=== PATIENT | male | born 1940 | race Two or more races ===

== ENCOUNTER 2019-01-13 17:33 | Inpatient (IN) | payer OTHER ==
[~2019-01-13] VITALS: Ht 177.8 cm; Wt 91.1 kg
[2019-01-14] MEDS ORDERED: KETOROLAC TROMETH 30 MG/ML 1ML VIAL IV ONE (01:30)
[2019-01-14 02:24] LABS: Basophils # (auto) 0 uL; Basophils % (auto) 0.3 % (0.0-2.0); Eosinophils # (auto) 0 uL; Eosinophils % (auto) 0.1 % (0.0-7.0); Hemoglobin 12.3 g/dL (13.5-17.5); Lymphocytes # (auto) 1.2 uL; Lymphocytes % (auto) 9.7 % (10.0-50.0); Mean Corpuscular Hemoglobin 30.3 pg (28.0-32.0); Mean Corpuscular Hgb Conc. 34.1 g/dL (32.0-36.0); Monocytes # (auto) 1.3 uL; Monocytes % (auto) 10.3 % (0.0-12.0); Neutrophils % (auto) 79.6 % (37.0-80.0); Platelet Count (auto) 165 10^3/uL (140-450); Red Blood Cells 4.05 10^6/uL (4.5-5.90); White Blood Cell 12.5 10^3/uL (4.4-10.8)
[2019-01-14 02:37] LABS: INR 1.11 (0.9-1.15)
[2019-01-14 03:05] LABS: Albumin 3.2 g/dL (3.4-5.0); Anion Gap 9 (5-15); Blood Urea Nitrogen 17 mg/dL (7-18); Calcium 8.1 mg/dL (8.5-10.1); Carbon Dioxide 24 mmol/L (21-32); Chloride 107 mmol/L (98-107); Glucose 120 mg/dL (74-106); Potassium 3.7 mmol/L (3.5-5.1); Sodium 140 mmol/L (136-145)
[2019-01-14 03:08] LABS: GFR African American 113 mL/min; GFR Non-African American 93 mL/min
[2019-01-14 03:13] LABS: Alanine Aminotransferase 21 U/L (16-61); Alkaline Phosphatase 76 U/L (45-117); Aspartate Aminotransferase 37 U/L (15-37); Bilirubin, Total 0.9 mg/dL (0.2-1.0); Total Protein 6.8 g/dL (6.4-8.2)
[2019-01-14 03:40] LABS: BUN/Creatinine Ratio 1.2
[2019-01-14] MEDS ORDERED: HYDROcodone-ACET 5/325MG TAB PO PRN (05:45)
[2019-01-14] MEDS ORDERED: LORazepam 0.5 MG TAB PO PRN (05:45)
[2019-01-14] MEDS ORDERED: DOCUSATE SOD 100 MG CAP PO PRN (05:45)
[2019-01-14] MEDS ORDERED: ACETAMINOPHEN 325 MG TAB PO PRN (05:45)
[2019-01-14] MEDS ORDERED: ONDANSETRON HCL 4 MG/2 ML VIAL IV PRN (05:45)
[2019-01-14 07:17] LABS: Basophils # (auto) 0 uL; Basophils % (auto) 0.3 % (0.0-2.0); Eosinophils # (auto) 0 uL; Eosinophils % (auto) 0.4 % (0.0-7.0); Hematocrit 34.7 % (41.0-53.0); Hemoglobin 11.8 g/dL (13.5-17.5); Lymphocytes # (auto) 1.6 uL; Lymphocytes % (auto) 17.7 % (10.0-50.0); Mean Corpuscular Hemoglobin 30.4 pg (28.0-32.0); Mean Corpuscular Volume 89.4 fL (80.0-100.0); Monocytes # (auto) 1.3 uL; Monocytes % (auto) 14.1 % (0.0-12.0); Neutrophils # (auto) 6.1 uL; Neutrophils % (auto) 67.5 % (37.0-80.0); Platelet Count (auto) 146 10^3/uL (140-450); Red Blood Cells 3.89 10^6/uL (4.5-5.90); Red Cell Distribution Width 14.2 % (11.8-14.3)
[2019-01-14] MEDS: D5W/SOD CHL 0.45% 1,000 ML IV SCH (07:17)
[2019-01-14 07:39] LABS: BUN/Creatinine Ratio 21.5; Calcium 8.1 mg/dL (8.5-10.1); Potassium 3.6 mmol/L (3.5-5.1)
--- NOTE | 2019-01-14 08:56 | NUR ---
MS admit from ER BARBY HAGER admitted to tele/MS. Patient oriented to Carlotta Copeland, primary RN, unit, room, bed, and unit policies regarding patient care and visiting hours. Safety precautions in place, bed set to lowest position/locked, bedside rails up x2, call light with in reach, bed alarm on. Will continue to monitor Q1hr and PRN.
[2019-01-14 09:00] VITALS: BP 145/69
[2019-01-14 13:00] VITALS: BP 150/78
[2019-01-14 17:36] VITALS: BP 138/72
[2019-01-14 19:21] LABS: Urine Bacteria NONE SEEN /hpf (None Seen); Urine Blood TRACE /uL (Negative); Urine Specific Gravity 1.023 (1.001-1.035); Urine WBC 88 /hpf (0 - 3)
--- NOTE | 2019-01-14 21:45 | NUR ---
Pt's son, Kulwinder Baldwin, called this evening and stated that pt is living in [facility] with a friend named Arias. Kulwinder further states that pt has had dementia for a few years now and had lived with his son in the past and then in a retirement for a short while until pt's friend Arias came to pick him up and move him into his home. Kulwinder further states that at times his father has become combative and yells that he has been kidnapped. Explained that his father is calm at this time and that pt states that he had no family to contact and appears to be very confused. Set up a password with sveta's son and Kulwinder Baldwin's phone number is [phone]. He wishes to be contacted with any questions or concerns.
[2019-01-14 22:00] VITALS: BP 152/78
[2019-01-15 05:00] VITALS: BP 133/62
--- NOTE | 2019-01-15 06:05 | NUR ---
Dr Nobles called this am to obtain results from echo. Echo results still pending at this time.
[2019-01-15] MEDS: D5W/SOD CHL 0.45% 1,000 ML IV SCH ×2 (06:29→14:51)
--- NOTE | 2019-01-15 07:30 | NUR ---
OPENING NOTE ASSUMED CARE OF PT. AWAKE AND ALERT, ORIENTED TO SELF/. NO S/S OF SOB/DISTRESS NOTED. PT DENIES ANY PAIN. SAFETY PRECAUTIONS IN PLACE. BED SET TO LOWEST POSITION/LOCKED. BEDSIDE RAILS UP X2. BED ALARM ON. CALL LIGHT WITH IN REACH. INSTRUCTED PT TO CALL FOR ASSISTANCE. UPDATE ON POC. WILL CONTINUE TO MONITOR Q1HR AND PRN.
--- NOTE | 2019-01-15 08:49 | NUR ---
RECEIVED CALL FROM UYEN REQUESTING STATUS ON PATIENT. UYEN IS STATING SHE IS PATIENTS ROOMMATE AND HER MOTHER IS PATIENTS CAREGIVER. SHE STATED THEY LIVE IN [place]. UYEN WAS INFORMED INFORMATION ON PATIENT COULD NOT BE PROVIDED SHE DID NOT HAVE PASSWORD. UYEN WAS ADVISED TO CALL PATIENTS SON AND REQUEST PASSWORD. PER UYEN SHE HAS SONS CONTACT INFORMATION AND WILL BE CALLING SON TO OBTAIN PASSWORD.
[2019-01-15 09:00] VITALS: BP 153/87
[2019-01-15] MEDS ORDERED: BUPIVACAINE W/ EPINEPH 0.25% INJ 50ML MDV ONE (09:02)
--- NOTE | 2019-01-15 09:16 | NUR ---
ECHO PAGED DR. SIMS RE: ECHO, AWAITING CALL BACK.
[2019-01-15] MEDS ORDERED: ceFAZolin 1GM/50ML 100 ML IV ONE (09:31)
--- NOTE | 2019-01-15 09:40 | NUR ---
OFF UNIT PATIENT OFF UNIT VIA BED TO PREOP. NO S/S OF SOB/DISTRESS NOTED.
--- NOTE | 2019-01-15 10:00 | NUR ---
ECHO GOT CALL BACK FROM RE:ECHO. PER DR. SIMS EF 60%. WILL INFORM DR. CISNEROS. [address] CISNEROS, MADE HIM AWARE OF ECHO, EF 60%
[2019-01-15] MEDS ORDERED: SUCCINYLCHOLINE CHLORIDE 20 MG/ML 10ML VIAL IV ONE (10:14)
[2019-01-15] MEDS ORDERED: fentaNYL CITRATE 100 MCG/2 ML VL ONE (10:18)
[2019-01-15] MEDS ORDERED: ROCURONIUM 10MG/ML 10ML VIAL IV ONE (10:18)
[2019-01-15] MEDS ORDERED: PROPOFOL 10 MG/ML 20 ML IV ONE (10:27)
[2019-01-15] MEDS ORDERED: hydrALAZINE HCL 20 MG/ML VL IV PRN (11:15)
[2019-01-15] MEDS ORDERED: ePHEDrine SULFATE 50 MG/ML AMP IV PRN (11:15)
[2019-01-15] MEDS ORDERED: ONDANSETRON HCL 4 MG/2 ML VIAL IV PRN (11:15)
--- NOTE | 2019-01-15 11:21 | NUR ---
MED REC ROOMMATE UYEN CALLED WITH PATIENTS MEDICATION LIST. MED REC UPDATED
[2019-01-15] MEDS ORDERED: AMLO5TAB15 PO (11:40)
[2019-01-15] MEDS ORDERED: CITA-243 PO (11:40)
[2019-01-15] MEDS ORDERED: QUET100T46 PO (11:40)
[2019-01-15] MEDS ORDERED: DONE10TA40 PO (11:40)
[2019-01-15] MEDS: MORPHINE SULFATE 4 MG/ML SYR/VIAL IV PRN ×4 (11:44→18:15)
[2019-01-15] MEDS: HYDROmorphone HCL 2 MG/ML VL IV PRN ×3 (12:18→15:20)
[2019-01-15] MEDS ORDERED: HYDROmorphone HCL 2 MG/ML VL ONE (12:18)
--- NOTE | 2019-01-15 13:04 | NUR ---
ON UNIT PATIENT BACK ON UNIT VIA BED FROM PACU. NO S/S OF SOB/DISTRESS NOTED. DRESSING TO LEFT HIP C/D/I. WILL CONTINUE TO MONITOR FOR CHANGES.
[2019-01-15 13:21] VITALS: BP 138/75
[2019-01-15] MEDS: LACTATED RINGER'S 1,000 ML IV SCH ×2 (13:33→22:17)
[2019-01-15] MEDS: Ensure HIGH Protein Vanilla 8oz Bottle PO SCH ×2 (13:34→18:05)
[2019-01-15] MEDS: ceFAZolin 1GM 2 GM in D5W 5% 100 ML IV SCH ×2 (13:48→22:17)
[2019-01-15 17:00] VITALS: BP 136/60
--- NOTE | 2019-01-15 19:30 | NUR ---
Opening Shift Note Assumed care of patient. Patient is awake and alert. No S/S of distress/SOB or pain. Instructed on POC and to call for assist PRN, will continue to monitor for changes. Bed locked in lowest position and bed rails up x2. Call light within reach.
[2019-01-15 22:00] VITALS: BP 129/78
--- NOTE | 2019-01-16 | NUR ---
Made aware by POWDER LINE REPAIRER that patient Jenkins was no longer intact. Upon entrance of room, Jenkins catheter was no longer intact and when asked, the patient was not sure how it happened. All linen changed.
--- NOTE | 2019-01-16 00:10 | NUR ---
Paged Hospitalist to receive order for reinsertion of Jenkins catheter. Awaiting call back
--- NOTE | 2019-01-16 00:14 | NUR ---
Hospitalist called back. New orders received. Will carry out orders and continue to monitor patient Q1 hour and PRN
--- NOTE | 2019-01-16 00:30 | NUR ---
Conway catheter insertion Patient assessed and determined to be in need of conway catheter. Order obtained from MD. Patient educated on catheter and reason for insertion. All questions answered. Conway catheter 16 guage Irish inserted with clean sterile technique. Patient tolerated well.
[2019-01-16] MEDS: MORPHINE SULFATE 4 MG/ML SYR/VIAL IV PRN ×2 (01:00→06:42)
[2019-01-16 05:06] VITALS: BP 132/76
[2019-01-16 05:45] LABS: Hematocrit 33.2 % (41.0-53.0); Hemoglobin 11.3 g/dL (13.5-17.5)
[2019-01-16] MEDS: ceFAZolin 1GM 2 GM in D5W 5% 100 ML IV SCH (05:57)
[2019-01-16 06:08] LABS: Albumin 2.6 g/dL (3.4-5.0); Calcium 7.4 mg/dL (8.5-10.1); Potassium 4.1 mmol/L (3.5-5.1)
[2019-01-16 06:11] LABS: BUN/Creatinine Ratio 20.3; Bilirubin, Total 0.8 mg/dL (0.2-1.0); Total Protein 5.6 g/dL (6.4-8.2)
[2019-01-16] MEDS: LACTATED RINGER'S 1,000 ML IV SCH ×2 (07:15→17:15)
--- NOTE | 2019-01-16 07:30 | NUR ---
Opening Shift Note Assumed care of patient, who is alert and oriented x3. No S/S of distress/SOB or pain. Bed is in the lowest position with 2x side rails up for safety. Call light is within reach. Instructed on POC and to call for assist PRN, will continue to monitor for changes Q1hr and PRN.
[2019-01-16 08:00] VITALS: BP 158/76
[2019-01-16 08:57] VITALS: BP 158/76
--- NOTE | 2019-01-16 09:30 | NUR ---
IV insertion IV access obtained, via clean sterile technique by inserting gauge catheter at 20 after 1 attempt(s). IV secured properly. No trauma to site. Patient tolerated well.
[2019-01-16] MEDS: MULTIPLE VITAMIN TAB PO SCH (09:37)
[2019-01-16] MEDS: D5W/SOD CHL 0.45% 1,000 ML IV SCH (09:38)
[2019-01-16] MEDS: ENOXAPARIN SOD 40 MG/0.4 ML SYRINGE SC SCH ×2 (09:38→10:00)
[2019-01-16] MEDS: Ensure HIGH Protein Vanilla 8oz Bottle PO SCH ×2 (09:39→12:36)
[2019-01-16] MEDS: HYDROmorphone HCL 2 MG/ML VL IV PRN ×2 (10:37→17:40)
[2019-01-16 12:34] VITALS: BP 149/70
[2019-01-16] MEDS ORDERED: MEMA1TAB2 PO (16:11)
[2019-01-16 16:49] VITALS: BP 166/76
--- NOTE | 2019-01-16 16:50 | NUR ---
Fever Patient with fever of 103. New orders received from MD. Diana and carried out. Cooling measures initiated. Will continue to monitor.
--- NOTE | 2019-01-16 16:53 | NUR ---
MD. Diana at bedside. New orders received/carried out.
--- NOTE | 2019-01-16 16:56 | NUR ---
assessment Patient is a 78 year old male who is confused. Prior to admission patient lived home with his caregivers and functioned with assistance. Per patients son Anant [phone] he agrees for patient to go to SNF on discharge. Patients PCP is Dr Swift. Per patients caregiver who is at bedside patient lost his balance and fell fracturing his hip. Anant verbalized understanding and agreed to patient going to SNF on discharge. Per ss consult work on next of kin/ insurance information. Caregiver has given admitting patients insurance card. Patient has Scan with [facility]. Addendum: 01/16/19 at 1707 by Leonor BELCHER Amended: Links added.
[2019-01-16] MEDS ORDERED: ACETAMINOPHEN 325 MG TAB PO PRN (17:15)
--- NOTE | 2019-01-16 19:00 | NUR ---
Urinalysis Urine specimen to be collected. Endorsed to [facility].
--- NOTE | 2019-01-16 19:20 | NUR ---
Opening Shift Note Assumed care of patient. Patient is awake and alert. No S/S of distress/SOB or pain. Instructed on POC and to call for assist PRN, will continue to monitor for changes. Bed locked in lowest position and bed rails up x2. Call light within reach. Addendum: 01/17/19 at 0524 by MARISSA ROWLEY RN RN With sitter at bedside
[2019-01-16 21:21] VITALS: BP 116/57
[2019-01-17 01:13] LABS: Urine Bacteria MOD /hpf (None Seen); Urine Blood 3+ /uL (Negative); Urine Hyaline Cast FEW /lpf (0 - 2); Urine Mucus FEW (None Seen); Urine Specific Gravity 1.024 (1.001-1.035); Urine WBC 148 /hpf (0 - 3)
[2019-01-17] MEDS: LACTATED RINGER'S 1,000 ML IV SCH (03:15)
[2019-01-17 05:33] VITALS: BP 129/70
--- NOTE | 2019-01-17 07:30 | NUR ---
Opening Shift Note Assumed care of patient, who is alert and oriented x3. Patient needs reorientation at times. No S/S of distress/SOB or pain. Bed is in the lowest position with 2x side rails up for safety. Call light within reach. Instructed on POC and to call for assist PRN, will continue to monitor for changes Q1hr and PRN.
[2019-01-17 08:00] VITALS: BP 133/77
[2019-01-17 08:48] VITALS: BP 133/77
[2019-01-17] MEDS: MULTIPLE VITAMIN TAB PO SCH (09:38)
[2019-01-17] MEDS: Ensure HIGH Protein Vanilla 8oz Bottle PO SCH ×2 (09:40→11:23)
[2019-01-17] MEDS: ENOXAPARIN SOD 40 MG/0.4 ML SYRINGE SC SCH (09:40)
[2019-01-17] MEDS: MORPHINE SULFATE 4 MG/ML SYR/VIAL IV PRN (09:41)
[2019-01-17] MEDS ORDERED: ENO40SY SC (09:43)
[2019-01-17] MEDS ORDERED: DOCU100C8 PO (09:43)
[2019-01-17] MEDS ORDERED: CEFT1INJ6 IM (09:43)
[2019-01-17] MEDS ORDERED: ACE325T PO (09:43)
[2019-01-17] MEDS ORDERED: cefTRIAXone SOD 1,000 MG VL IM SCH (10:00)
[2019-01-17 10:11] LABS: Hematocrit 33.6 % (41.0-53.0); Hemoglobin 11.6 g/dL (13.5-17.5)
--- NOTE | 2019-01-17 10:14 | NUR ---
I received a call from [facility] Dock Associate Cherri letting me know that patient has a bed at [facility] room 60B, Dr. Jessie Alfaro accepting-[facility] to pick and shovel man at 1400.
[2019-01-17] MEDS ORDERED: cefTRIAXone 1GM/50ML D5W 50 ML IV ONE (10:15)
--- NOTE | 2019-01-17 10:21 | NUR ---
D/C Planning Per consult for SNF Placement. Per Adjustment Supervisor SHIKHA Law from [facility] advised her [facility] has accepted. Contact [facility] Ph:( [phone]) fAX:( [phone]) faxed medical records. Per Joelle from [facility] patient has been accepted to room 53a accepting MD Dr. La Alfaro. Contact [facility] Ph:) spoke to Winston. Per Winston transportation bean picker will be at 14:00. Informed KHADIJAH Bedolla. Addendum: 01/17/19 at 1025 by TOYA EASTMAN Amended: Links added.
--- NOTE | 2019-01-17 12:18 | NUR ---
Discharge planning per consult, patient has orders for SNF placement. Referral sent to [facility]. Placed a follow up call, spoke to case resource manager Martha and was advised that patient was accepted to [facility] [phone] to room [address] Ring. Transportation was arranged with [employer] [phone] and the scheduled hop picker time is for 2pm. Nurse Bedolla was advised of dc plan. Addendum: 01/17/19 at 1229 by OSMIN NAPIER Amended: Links added.
[2019-01-17 12:49] VITALS: BP 123/66
[2019-01-17 13:00] VITALS: BP 123/66
--- NOTE | 2019-01-17 14:20 | NUR ---
Dolores here to pharmacy picking technician patient and take him to [facility]. No signs of distress noted on departure.
== END 2019-01-17 14:20 | DRG 481 ==
LOC: ER 17:33 → EDBD 17:33 → OVERFLOW 17:34 → WEST WING 01-14 09:28
PROVIDERS: ADMIT Hospitalist; ATTEND Family Medicine
PROC: 0QS736Z Reposition Left Upper Femur with Intramedullary Internal Fixation Device, Percutaneous Approach (ICD-10-PCS; principal; 2019-01-15 10:12)
DX: S72.142A Displaced intertrochanteric fracture of left femur, initial encounter for closed fracture (principal); N39.0 Urinary tract infection, site not specified; G30.9 Alzheimer's disease, unspecified; F02.80 Dementia in other diseases classified elsewhere, unspecified severity, without behavioral disturbance, psychotic disturbance, mood disturbance, and anxiety; I10 Essential (primary) hypertension; L40.9 Psoriasis, unspecified; W18.39XA Other fall on same level, initial encounter; Y93.89 Activity, other specified; Y92.89 Other specified places as the place of occurrence of the external cause; Y99.8 Other external cause status; Z79.899 Other long term (current) drug therapy
CPT/HCPCS: 36415; 71045; 72192; 73501; 73502; 76000; 80048; 80053; 81001; 83605; 83880; 84484; 85014; 85018; 85025; 85610; 86850; 86900; 86901; 87040; 87086; 93306; 96361; 96365; 96367; 96375; 97163; A4565; C1713; G0378; J0330; J0690; J0696; J1885; J2405; J2704; J7060